=== PATIENT | male | born 1990 | race Caucasian/White ===

== ENCOUNTER 2016-06-26 10:25 | Emergency (ER) | payer OTHER ==
--- NOTE | ~2016-06-26 | CR63 ---
[facility] A Service of [facility] & [facility] RADIOLOGY TEXT RESULTS PATIENT: KENIA SANTIAGO LOCATION: [facility] : [birth year] UNIT #: [id number] AGE: [address]: Summer Mirza SEX: M ORDER DR: [id number] [facility] [address] [place], [place] [address] [id number] MR#: [id number] Acc #: [id number] NAME: KENIA SANTIAGO. : 1990 SEX: M STUDY DATE/TIME: 06/26/2016 10:07 UNIT: [facility] ROOM: STUDY DESCRIPTION: CR Chest 2 View Attending Physician: Summer Mirza P.A.-C. Ordering Physician: Summer Mirza P.A.-C. [facility] Care Phys[facility] REPORT This report is preliminary unless electronic signature is present EXAM Chest, 06/26/2016, 1007 hours, [facility]. HISTORY 26-year-old male with right lateral chest pain, cough and fever. Patient is smoker. COMPARISON Chest, 05/21/2012 FINDINGS Two-view chest is negative. Cardiac size and configuration are normal. Hilar structures and mediastinal contours are preserved. Bilateral lungs are expanded and clear. Costophrenic angles appear normal. IMPRESSION Negative chest. Dictated by... Freddy Petersen M.D. THIS IS AN ELECTRONICALLY VERIFIED REPORT Freddy Petersen M.D. at 06/26/2016 3:45 PM JOSE/lizbeth TD: 06/26/2016 14:49 JOB #: [id number] MEDICAL IMAGING REPORT COPY
[~2016-06-26 10:25] MED LIST: ALBUTEROL 0.5ML; ALBUTEROL 0.5ML INH; ALBUTEROL17 G1; ALBUTEROL17 G1 IH; ALBUTEROL17 GM INH; ALBUTEROL2.5 MG/0.5 IH; AMOX TR-K CLV 81 TA1 PO; AUGMENTIN PO; BACTRIM DS TABL1 TA1 PO; BENADRILINA25 MG PO; BENADRYL PO; BENTYL10 MG PO; BENZONATATE PO; CARAFATE1 G PO; FLEXERIL10 MG PO; IBUPROFEN600 MG PO; IBUPROFEN800 MG PO; LITHIUM PO; LORATADINE PO; LORTAB 5/500 TA1 TA1 PO; MEDROL PO; MOBIC PO; MUCINEX DM TABL1 BOX PO; NAPROSYN500 MG PO; NASONEX17 GM; NO MEDICATIONS; NORCO 7.5-3251 EACH PO; PEPCID AC20 MG PO; PHENERGAN25 MG PO; PREDNISONE PO; PREDNISONE10 MG/DOSE PO; PREDNISONE5 M1 PO; PREDNISONE50 MG PO; PRILOSEC20 M1 PO; PRILOSEC40 MG PO; PROVENTIL INH0.5 ML HHN; REGLAN10 MG PO; ROBAXIN500 MG PO; SEROQUEL PO; SILENOR3 MG PO; SKELAXIN400 MG PO; STERAPRED5 MG/DOSE1 PO; SUDAFED30 M1 PO; TESSALON200 MG PO; TYLENOL #3 PO; ULTRAM PO; VIBRAMYCIN100 M1 PO; VICODIN 5/1 TAB 5/50 PO; VOLTAREN75 MG PO; ZITHROMAX PO; ZITHROMAX1 G/PKT PO; ZOFRAN ODT4 MG PO; ZYRTEC; ZYRTEC PO; ZYRTEC10 M2 PO; [UNRECOGNIZED DRUG - OTHER] TOP
[2016-06-26 10:27] LABS: INFLUENZA A NEG (NEG); INFLUENZA B NEG (NEG)
== END 2016-06-26 10:45 | disposition home or self-care (01) ==
LOC: CED 10:25
PROVIDERS: Physician Assistant
DX: R05 Cough (principal); F17.210 Nicotine dependence, cigarettes, uncomplicated; J45.909 Unspecified asthma, uncomplicated; K21.9 Gastro-esophageal reflux disease without esophagitis; F41.9 Anxiety disorder, unspecified; Z88.8 Allergy status to other drugs, medicaments and biological substances
CPT/HCPCS: 71020; 87651; 87804; 94640; 99283; 99284